=== PATIENT | male | born 1995 | race Caucasian/White ===

== ENCOUNTER 2017-04-24 09:18 | Emergency (ER) | payer BC ==
[~2017-04-24] VITALS: Ht 185.4 cm; Wt 70.2 kg
[2017-04-24 09:22] VITALS: BP 131/78; TEMP 97.8
[2017-04-24] MEDS ORDERED: LANTUS100 U/ML SQ (09:28)
[2017-04-24] MEDS ORDERED: HUMALOG100 U/ML SQ (09:28)
[2017-04-24 10:30] LABS: BASO % 0.2 % (0.0-2.0); GRAN # 4.3 (1.4-6.5); GRAN % 81.8 % (42.2-75.2); HEMATOCRIT 41.1 % (42.0-52.0); HEMOGLOBIN 14.6 g/dl (13.5-18.0); LYMPH # 0.6 (1.2-3.4); LYMPH % 11.1 % (20.0-51.0); MEAN CELL VOLUME 89 fl (80.0-100.0); MEAN CORPUSCULAR HEMOGLOBIN 32 pg (27.0-31.0); MEAN CORPUSCULAR HGB CONC 36 g/dl (33.0-37.0); MEAN PLATELET VOLUME 11.1 fl (7.4-10.4); MONO # 0.4 (0.1-0.6); MONO % 6.7 % (1.7-9.3); PLATELET COUNT 151 K/mm3 (130-400); RED BLOOD COUNT 4.61 M/mm3 (4.20-5.60); WHITE BLOOD COUNT 5.2 K/mm3 (4.8-10.8)
[2017-04-24 10:39] LABS: ACETONE,SERUM NEGATIVE
[2017-04-24 10:46] LABS: ADJUSTED CALCIUM 8.6 mg/dL (8.4-10.2); ALANINE AMINOTRANSFERASE 131 U/L (21-72); ALBUMIN 4.2 gm/dL (3.5-5.0); ALKALINE PHOSPHATASE 71 U/L (50-136); ANION GAP 10 mmol/L (7-16); BILIRUBIN,TOTAL 2.1 mg/dL (0.0-1.0); BLOOD UREA NITROGEN 17 mg/dL (9-20); CALCIUM 8.8 mg/dL (8.4-10.2); CARBON DIOXIDE 25 mmol/L (22-30); CHLORIDE 101 mmol/L (98-107); CREATININE, serum 0.85 mg/dL (0.66-1.25); GLUCOSE 169 mg/dL (74-106); LIPASE 44 U/L (23-300); SODIUM 136 mmol/L (137-145); TOTAL PROTEIN 6.8 gm/dL (6.4-8.2)
[2017-04-24 11:58] LABS: COLLECTION METHOD CLEAN CATCH
[2017-04-24 12:17] LABS: MUCOUS Present /lpf; PH 6 (5-8); SQUAMOUS EPITHELIAL None Seen /hpf; URINE APPEARANCE Clear; URINE BACTERIA Rare /hpf; URINE BILIRUBIN Negative (NEGATIVE); URINE BLOOD Negative (NEGATIVE); URINE COLOR Yellow; URINE GLUCOSE 1+ (NEGATIVE); URINE KETONE Trace (NEGATIVE); URINE LEUKOCYTE ESTERASE Negative (NEGATIVE); URINE PROTEIN(semi-quant) Negative (NEGATIVE); URINE RBC 0-2 /hpf; URINE UROBILINOGEN >=4.0 mg/dL (NEGATIVE); URINE WBC 0-2 /hpf
[2017-04-24] MEDS ORDERED: ZOFRAN ODT4 MG PO (13:50)
[2017-04-24 14:18] VITALS: PULSE 78
== END 2017-04-24 14:19 | disposition home or self-care (01) ==
LOC: COL.ER 09:18
PROVIDERS: Emergency Medicine
DX: E10.9 Type 1 diabetes mellitus without complications (principal); R11.10 Vomiting, unspecified; Z79.4 Long term (current) use of insulin
CPT/HCPCS: J2405; J7030